=== PATIENT | male | born 1980 | race African-American/Black ===

== ENCOUNTER 2021-05-29 00:21 | Inpatient (IN) ==
[2021-05-29] MEDS ORDERED: ONDANSETRON 4 MG/2 ML VIAL IV STA ×2 (01:31→05:12)
[2021-05-29] MEDS ORDERED: SODIUM CHLORIDE 0.9% 1,000 ML IV STA (01:31)
[2021-05-29] MEDS ORDERED: PANTOPRAZOLE 40 MG VIAL IV STA (01:31)
[2021-05-29] MEDS ORDERED: HYDROmorphone 2 MG/1 ML VIAL IV STA ×2 (01:31→05:12)
[2021-05-29 02:51] LABS: Basophils % 0.3 % (0.0-0.8); Eosinophils # 0.1 10*3/uL (0.0-0.87); Eosinophils % 0.8 % (0.00-10.9); Hematocrit 42.4 VOL% (42.0-52.0); Hemoglobin 13.6 GM/DL (14.0-18.0); Immature Granulocytes % 1.6 %; Immature Granulocytes Absolute 0.24 #; Lymphocytes # 1.1 10*3/uL (1.4-4.0); Lymphocytes % 7.2 % (21.2-54.2); Mean Corpuscular HGB Conc 32.1 GM/DL (32-36); Mean Corpuscular Volume 82.3 FL (87-102); Mean Platelet Volume 9.9 FL (9.6-12.0); Monocytes % 7.7 % (1.7-12.7); Neutrophils % 82.4 % (38.7-73.9); Platelet Count 607 T/CUMM (130-400); Red Blood Count 5.15 MC/CUMM (3.8-5.5); Red Cell Distribution Width 18.6 % (9.3-17.3); White Blood Count 14.6 T/CUMM (4-12)
[2021-05-29 02:57] LABS: Bilirubin,Urine Negative (Negative); Blood, Urine Negative (Negative); Glucose,Urine (UA) Negative (Negative); Ketones,Urine Negative (Negative); Mucus,Urine Occasional /LPF (Occasional); Nitrite,Urine Negative (Negative); Protein,Urine Negative; Urine Appearance Slightly Hazy (Clear); Urine Color Yellow (Yellow); Urine Specific Gravity 1.008 (1.001-1.035); Urine Urobilinogen < 2.0 EU/DL (0.2-1.0)
[2021-05-29 03:32] LABS: Alanine Aminotransferase 95 U/L (16-61); Albumin 2.2 G/DL (3.4-5.0); Alkaline Phosphatase 1200 U/L (45-117); Amylase 368 U/L (25-115); Aspartate Amino Transferase 74 U/L (0-37); Blood Urea Nitrogen 17 MG/DL (7-18); Calcium 12.6 MG/DL (8.5-10.1); Carbon Dioxide 30 MMOL/L (21-32); Estimated Glom Filtration Rate 84 ML/MIN; Glucose 154 MG/DL (74-106); Osmolality,Calculated 272.2 MOS/KG (273-304); Potassium 3.9 MMOL/L (3.5-5.1); Sodium 134 MMOL/L (136-145); Total Protein 8.8 G/DL (6.4-8.2)
[2021-05-29] MEDS ORDERED: PIPERACILLIN/TAZOBACTAM 3,375 MG in SODIUM CHLORIDE 0.9% 100 ML IV STA (03:36)
[2021-05-29] MEDS ORDERED: GLUCAGON 1 MG VIAL IM PRN (06:14)
[2021-05-29] MEDS ORDERED: DEXTROSE 50% 25 GM/50 ML VIAL IV PRN (06:14)
[2021-05-29] MEDS: SODIUM CHLORIDE 0.9% 1,000 ML IV SCH ×3 (07:03→20:41)
[2021-05-29 07:37] LABS: Risk Ratio 25.63; VLDL Cholesterol 34.2 MG/DL
[2021-05-29] MEDS: PANTOPRAZOLE 40 MG VIAL IV SCH (09:40)
[2021-05-29] MEDS: PIPERACILLIN/TAZOBACTAM 3,375 MG in SODIUM CHLORIDE 0.9% 100 ML IV SCH ×2 (10:05→18:46)
[2021-05-29] MEDS: HYDROmorphone 2 MG/1 ML VIAL IV PRN ×2 (12:28→18:49)
[2021-05-29] MEDS: ONDANSETRON 4 MG/2 ML VIAL IV PRN (18:49)
[2021-05-30] MEDS: PIPERACILLIN/TAZOBACTAM 3,375 MG in SODIUM CHLORIDE 0.9% 100 ML IV SCH ×3 (02:24→17:13)
[2021-05-30] MEDS: SODIUM CHLORIDE 0.9% 1,000 ML IV SCH ×3 (02:24→16:18)
[2021-05-30] MEDS: ONDANSETRON 4 MG/2 ML VIAL IV PRN ×2 (04:37→17:11)
[2021-05-30] MEDS: HYDROmorphone 2 MG/1 ML VIAL IV PRN (04:38)
[2021-05-30 06:52] LABS: Albumin 1.6 G/DL (3.4-5.0); Bilirubin,Total 1.8 MG/DL (0.20-1.00); Calcium 11.7 MG/DL (8.5-10.1); Osmolality,Calculated 277.7 MOS/KG (273-304); Total Protein 7.4 G/DL (6.4-8.2)
[2021-05-30 06:57] LABS: Basophils % 0.2 % (0.0-0.8); Eosinophils # 0.1 10*3/uL (0.0-0.87); Eosinophils % 0.4 % (0.00-10.9); Hematocrit 38.4 VOL% (42.0-52.0); Hemoglobin 12.6 GM/DL (14.0-18.0); Immature Granulocytes % 0.8 %; Immature Granulocytes Absolute 0.12 #; Lymphocytes % 6.2 % (21.2-54.2); Mean Corpuscular HGB Conc 32.8 GM/DL (32-36); Mean Corpuscular Volume 83.5 FL (87-102); Mean Platelet Volume 11.2 FL (9.6-12.0); Monocytes % 9.4 % (1.7-12.7); Red Cell Distribution Width 19.2 % (9.3-17.3)
[2021-05-30 07:32] LABS: Platelet Count 391 T/CUMM (130-400)
[2021-05-30] MEDS: PANTOPRAZOLE 40 MG VIAL IV SCH (09:59)
[2021-05-30] MEDS ORDERED: HYDROmorphone 2 MG/1 ML VIAL IV PRN (12:31)
[2021-05-31] MEDS: PIPERACILLIN/TAZOBACTAM 3,375 MG in SODIUM CHLORIDE 0.9% 100 ML IV SCH ×3 (02:04→17:55)
[2021-05-31 06:41] LABS: Basophils % 0.2 % (0.0-0.8); Eosinophils # 0.4 10*3/uL (0.0-0.87); Hematocrit 34.9 VOL% (42.0-52.0); Hemoglobin 11.4 GM/DL (14.0-18.0); Immature Granulocytes Absolute 0.13 #; Lymphocytes # 1.1 10*3/uL (1.4-4.0); Lymphocytes % 8.8 % (21.2-54.2); Mean Corpuscular HGB Conc 32.7 GM/DL (32-36); Mean Corpuscular Volume 83.1 FL (87-102); Mean Platelet Volume 10.8 FL (9.6-12.0); Monocytes % 8.8 % (1.7-12.7); Neutrophils % 78.2 % (38.7-73.9); Platelet Count 427 T/CUMM (130-400); Red Cell Distribution Width 18.7 % (9.3-17.3); White Blood Count 12.9 T/CUMM (4-12)
[2021-05-31 07:01] LABS: Albumin 1.5 G/DL (3.4-5.0); Bilirubin,Total 1.3 MG/DL (0.20-1.00); Calcium 10.9 MG/DL (8.5-10.1); Osmolality,Calculated 268.4 MOS/KG (273-304); Potassium 3.7 MMOL/L (3.5-5.1); Total Protein 7.4 G/DL (6.4-8.2)
[2021-05-31] MEDS: SODIUM CHLORIDE 0.9% 1,000 ML IV SCH ×3 (08:34→17:57)
[2021-05-31] MEDS: PANTOPRAZOLE 40 MG VIAL IV SCH (09:01)
[2021-05-31] MEDS: HYDROmorphone 2 MG/1 ML VIAL IV PRN (09:05)
[2021-05-31] MEDS: ONDANSETRON 4 MG/2 ML VIAL IV PRN (09:08)
[2021-06-01] MEDS: PIPERACILLIN/TAZOBACTAM 3,375 MG in SODIUM CHLORIDE 0.9% 100 ML IV SCH ×3 (01:35→20:59)
[2021-06-01] MEDS: SODIUM CHLORIDE 0.9% 1,000 ML IV SCH ×3 (04:04→13:27)
[2021-06-01] MEDS ORDERED: SEVOFLURANE 1 UNIT/15 MINUTE INH ONE ×5 (05:16→11:11)
[2021-06-01] MEDS ORDERED: ROCURONIUM 50 MG/5 ML VIAL IV ONE (05:16)
[2021-06-01] MEDS ORDERED: MIDAZOLAM 2 MG/2 ML VIAL ONE (05:16)
[2021-06-01] MEDS ORDERED: propofoL 200 MG/20 ML VIAL IV ONE (05:16)
[2021-06-01] MEDS ORDERED: fentaNYL 100 MCG/2 ML VIAL ONE (05:16)
[2021-06-01] MEDS ORDERED: LIDOCAINE 2% 5 ML VIAL ONE (05:16)
[2021-06-01] MEDS ORDERED: BUPIVACAINE MPF 0.25% 30 ML VIAL ONE (09:31)
[2021-06-01] MEDS ORDERED: LIDOCAINE 1%/EPI INJ 20 ML VIAL ONE (09:31)
[2021-06-01] MEDS ORDERED: PHENYLEPHRINE 1 MG/10 ML SYRINGE IV ONE (09:56)
[2021-06-01] MEDS ORDERED: TISSUE ADHESIVE 1 EACH APPLICATOR TOP ONE (09:56)
[2021-06-01] MEDS ORDERED: ONDANSETRON 4 MG/2 ML VIAL ONE (09:57)
[2021-06-01] MEDS ORDERED: GLYCOPYRROLATE 0.4 MG/2 ML VIAL ONE (09:59)
[2021-06-01] MEDS ORDERED: NEOSTIGMINE 10 MG/10 ML VIAL ONE (09:59)
[2021-06-01] MEDS ORDERED: SODIUM CHLORIDE 0.9% 1,000 ML IV ONE (10:18)
[2021-06-01] MEDS ORDERED: ONDANSETRON 4 MG/2 ML VIAL IV PRN (11:34)
[2021-06-01] MEDS: HYDROmorphone 2 MG/1 ML VIAL IV PRN ×3 (11:36→18:39)
[2021-06-01] MEDS: PANTOPRAZOLE 40 MG VIAL IV SCH (12:36)
[2021-06-01 13:18] LABS: Albumin 1.5 G/DL (3.4-5.0); Bilirubin,Total 1.4 MG/DL (0.20-1.00); Calcium 9.9 MG/DL (8.5-10.1); Osmolality,Calculated 267.2 MOS/KG (273-304); Potassium 3.3 MMOL/L (3.5-5.1); Total Protein 7.2 G/DL (6.4-8.2)
[2021-06-01 13:24] LABS: Basophils % 0.3 % (0.0-0.8); Eosinophils # 0.3 10*3/uL (0.0-0.87); Eosinophils % 2.7 % (0.00-10.9); Hematocrit 35.9 VOL% (42.0-52.0); Hemoglobin 11.1 GM/DL (14.0-18.0); Immature Granulocytes % 1.2 %; Immature Granulocytes Absolute 0.12 #; Lymphocytes % 10.3 % (21.2-54.2); Mean Corpuscular HGB Conc 30.9 GM/DL (32-36); Mean Corpuscular Volume 88.2 FL (87-102); Mean Platelet Volume 10.1 FL (9.6-12.0); Monocytes % 10.7 % (1.7-12.7); Neutrophils % 74.8 % (38.7-73.9); Platelet Count 429 T/CUMM (130-400); Red Blood Count 4.07 MC/CUMM (3.8-5.5); Red Cell Distribution Width 18.9 % (9.3-17.3); White Blood Count 10.1 T/CUMM (4-12)
[2021-06-02] MEDS: PIPERACILLIN/TAZOBACTAM 3,375 MG in SODIUM CHLORIDE 0.9% 100 ML IV SCH ×2 (04:26→12:05)
[2021-06-02 06:49] LABS: Basophils % 0.3 % (0.0-0.8); Eosinophils # 0.4 10*3/uL (0.0-0.87); Eosinophils % 4.2 % (0.00-10.9); Hematocrit 32.6 VOL% (42.0-52.0); Hemoglobin 10.6 GM/DL (14.0-18.0); Immature Granulocytes % 0.9 %; Immature Granulocytes Absolute 0.08 #; Lymphocytes # 0.8 10*3/uL (1.4-4.0); Lymphocytes % 9.1 % (21.2-54.2); Mean Corpuscular HGB Conc 32.5 GM/DL (32-36); Mean Corpuscular Volume 83.8 FL (87-102); Mean Platelet Volume 10.3 FL (9.6-12.0); Monocytes % 12.7 % (1.7-12.7); Neutrophils % 72.8 % (38.7-73.9); Platelet Count 431 T/CUMM (130-400); Red Blood Count 3.89 MC/CUMM (3.8-5.5); Red Cell Distribution Width 18.6 % (9.3-17.3); White Blood Count 9.2 T/CUMM (4-12)
[2021-06-02 07:25] LABS: Albumin 1.4 G/DL (3.4-5.0); Bilirubin,Total 1.4 MG/DL (0.20-1.00); Calcium 9.9 MG/DL (8.5-10.1); Osmolality,Calculated 268.2 MOS/KG (273-304); Potassium 3.5 MMOL/L (3.5-5.1); Total Protein 6.9 G/DL (6.4-8.2)
[2021-06-02] MEDS: PANTOPRAZOLE 40 MG VIAL IV SCH (08:49)
[2021-06-02 12:32] VITALS: BP 120/76
== END 2021-06-02 13:00 | disposition home or self-care (01) | DRG 263 ==
LOC: SUATTDRO → N.ED 00:21 → N.EDINP 06:14 → N.2W 15:25
PROVIDERS: ADMIT Internal Medicine; ATTEND Internal Medicine
PROC: LAPCHOL (2021-06-01 09:24)

== ENCOUNTER 2021-11-21 09:09 | Inpatient (IN) ==
[2021-11-21] MEDS ORDERED: ONDANSETRON 4 MG/2 ML VIAL IV STA (09:43)
[2021-11-21] MEDS ORDERED: PANTOPRAZOLE 40 MG VIAL IV STA (09:43)
[2021-11-21] MEDS ORDERED: SODIUM CHLORIDE 0.9% 1,000 ML IV STA ×2 (09:43→10:47)
[2021-11-21] MEDS ORDERED: HYDROmorphone 1 MG/1 ML SYRINGE IV STA (09:44)
[2021-11-21 10:17] LABS: Basophils % 0.3 % (0.0-0.8); Eosinophils # 0.3 10*3/uL (0.0-0.87); Eosinophils % 4.1 % (0.00-10.9); Hematocrit 43.5 VOL% (42.0-52.0); Hemoglobin 13.8 GM/DL (14.0-18.0); Immature Granulocytes % 0.4 %; Immature Granulocytes Absolute 0.03 #; Lymphocytes % 12.5 % (21.2-54.2); Mean Corpuscular HGB Conc 31.7 GM/DL (32-36); Mean Corpuscular Volume 84.5 FL (87-102); Mean Platelet Volume 11.1 FL (9.6-12.0); Monocytes # 0.8 10*3/uL (0.11-0.8); Monocytes % 9.8 % (1.7-12.7); Neutrophils % 72.9 % (38.7-73.9); Platelet Count 380 T/CUMM (130-400); Red Blood Count 5.15 MC/CUMM (3.8-5.5); Red Cell Distribution Width 14.8 % (9.3-17.3); White Blood Count 7.9 T/CUMM (4-12)
[2021-11-21 10:42] LABS: Bilirubin,Total 1.3 MG/DL (0.20-1.00); Osmolality,Calculated 276.1 MOS/KG (273-304); Potassium 3.6 MMOL/L (3.5-5.1); Total Protein 10.8 G/DL (6.4-8.2)
[2021-11-21 10:45] LABS: Calcium 15.7 MG/DL (8.5-10.1)
[2021-11-21] MEDS ORDERED: DEXTROSE 10% 25 GM/250 ML BAG IV PRN (11:01)
[2021-11-21] MEDS ORDERED: GLUCAGON 1 MG VIAL IM PRN (11:01)
[2021-11-21] MEDS ORDERED: LACTULOSE 20 GM/30 ML UDCUP PO PRN (11:01)
[2021-11-21 11:24] LABS: Risk Ratio 6.93; VLDL Cholesterol 26.4 MG/DL
[2021-11-21] MEDS: LACTATED RINGERS 1,000 ML IV SCH ×2 (11:30→19:23)
[2021-11-21 11:55] LABS: Osmolality,Calculated 279.8 MOS/KG (273-304); Potassium 3.8 MMOL/L (3.5-5.1)
[2021-11-21 12:04] LABS: Calcium 14.2 MG/DL (8.5-10.1)
[2021-11-21] MEDS: INSULIN LISPRO 100 UNIT/ML SUBCUT SCH ×2 (12:19→18:54)
[2021-11-21] MEDS: HYDROmorphone 1 MG/1 ML SYRINGE IV PRN ×4 (12:40→22:56)
[2021-11-21] MEDS: PROMETHAZINE 25 MG/1 ML VIAL IM PRN ×2 (12:41→19:21)
[2021-11-21] MEDS: ONDANSETRON 4 MG/2 ML VIAL IV PRN ×2 (14:13→18:15)
[2021-11-21 16:12] LABS: INR 1.1; Partial Thromboplastin Time 30.2 SECS (23.8-32.1)
[2021-11-21 18:51] LABS: Calcium Oxalate Crystals,Urine Occasional /HPF (Few); Glucose,Urine (UA) Negative (Negative); Ketones,Urine Negative (Negative); Protein,Urine Trace mg/dL (Negative); RBC,Urine 4 /HPF (0-4); Urine Appearance Clear (Clear); Urine Color Yellow (Yellow); Urine Specific Gravity 1.015 (1.001-1.035)
[2021-11-21 18:52] LABS: Bilirubin,Urine Negative (Negative); Blood, Urine Moderate mg/dL (Negative); Nitrite,Urine Negative (Negative); Urine Urobilinogen 0.2 eU/dL (<2.0)
[2021-11-21 20:21] LABS: Hepatitis B Core IgM Quant 0.11 Index; Hepatitis B Surface Ag Quant < 0.10 Index; Hepatitis B Surface Ag Result Non-Reactive (NonReactive); Hepatitis C Virus Ab Quant 0.13 Index; Hepatitis C Virus Ab Result Non-Reactive (NonReactive)
[2021-11-21] MEDS: DOCUSATE SODIUM 100 MG CAPSULE PO SCH (20:39)
[2021-11-21] MEDS: PANTOPRAZOLE 40 MG VIAL IV SCH (20:39)
[2021-11-22] MEDS: LACTATED RINGERS 1,000 ML IV SCH ×5 (00:22→16:37)
[2021-11-22] MEDS: INSULIN LISPRO 100 UNIT/ML SUBCUT SCH ×4 (00:58→17:16)
[2021-11-22] MEDS: HYDROmorphone 1 MG/1 ML SYRINGE IV PRN ×5 (02:07→21:26)
[2021-11-22] MEDS: ONDANSETRON 4 MG/2 ML VIAL IV PRN ×4 (02:08→21:27)
[2021-11-22 06:47] LABS: Basophils % 0.2 % (0.0-0.8); Eosinophils # 0.2 10*3/uL (0.0-0.87); Eosinophils % 1.9 % (0.00-10.9); Hematocrit 39.6 VOL% (42.0-52.0); Hemoglobin 12.3 GM/DL (14.0-18.0); Immature Granulocytes % 0.3 %; Immature Granulocytes Absolute 0.03 #; Lymphocytes # 0.8 10*3/uL (1.4-4.0); Lymphocytes % 8.6 % (21.2-54.2); Mean Corpuscular HGB Conc 31.1 GM/DL (32-36); Mean Corpuscular Volume 86.3 FL (87-102); Mean Platelet Volume 11.3 FL (9.6-12.0); Monocytes # 1.2 10*3/uL (0.11-0.8); Monocytes % 12.9 % (1.7-12.7); Neutrophils % 76.1 % (38.7-73.9); Platelet Count 295 T/CUMM (130-400); Red Blood Count 4.59 MC/CUMM (3.8-5.5); White Blood Count 9.2 T/CUMM (4-12)
[2021-11-22 07:10] LABS: Albumin 2.3 G/DL (3.4-5.0); Bilirubin,Total 1.1 MG/DL (0.20-1.00); Calcium 13.7 MG/DL (8.5-10.1); Osmolality,Calculated 279.8 MOS/KG (273-304); Potassium 3.9 MMOL/L (3.5-5.1); Total Protein 8.3 G/DL (6.4-8.2)
[2021-11-22 07:11] LABS: Phosphorous 4.9 MG/DL (2.5-4.9)
[2021-11-22] MEDS: DOCUSATE SODIUM 100 MG CAPSULE PO SCH ×2 (09:26→21:28)
[2021-11-22] MEDS: PANTOPRAZOLE 40 MG VIAL IV SCH ×2 (09:26→21:28)
[2021-11-23] MEDS: INSULIN LISPRO 100 UNIT/ML SUBCUT SCH ×4 (00:58→17:47)
[2021-11-23] MEDS: LACTATED RINGERS 1,000 ML IV SCH ×5 (05:53→18:12)
[2021-11-23 06:12] LABS: Basophils % 0.1 % (0.0-0.8); Eosinophils # 0.5 10*3/uL (0.0-0.87); Eosinophils % 7.2 % (0.00-10.9); Hematocrit 32.2 VOL% (42.0-52.0); Hemoglobin 10.3 GM/DL (14.0-18.0); Immature Granulocytes % 0.4 %; Immature Granulocytes Absolute 0.03 #; Lymphocytes # 1.1 10*3/uL (1.4-4.0); Lymphocytes % 15.8 % (21.2-54.2); Mean Corpuscular Volume 84.7 FL (87-102); Mean Platelet Volume 11.2 FL (9.6-12.0); Monocytes # 0.9 10*3/uL (0.11-0.8); Monocytes % 13.1 % (1.7-12.7); Neutrophils % 63.4 % (38.7-73.9); Platelet Count 282 T/CUMM (130-400); Red Cell Distribution Width 14.8 % (9.3-17.3); White Blood Count 6.7 T/CUMM (4-12)
[2021-11-23 06:40] LABS: Albumin 2.1 G/DL (3.4-5.0); Bilirubin,Total 0.9 MG/DL (0.20-1.00); Calcium 12.5 MG/DL (8.5-10.1); Osmolality,Calculated 279.7 MOS/KG (273-304); Potassium 3.5 MMOL/L (3.5-5.1); Total Protein 7.5 G/DL (6.4-8.2)
[2021-11-23 06:47] LABS: Albumin 2.1 G/DL (3.4-5.0); Bilirubin,Direct 0.52 MG/DL (0.0-0.20); Bilirubin,Indirect 0.4 MG/DL (0.0-1.0); Bilirubin,Total 0.9 MG/DL (0.20-1.00); Potassium 3.5 MMOL/L (3.5-5.1); Total Protein 7.5 G/DL (6.4-8.2)
[2021-11-23] MEDS: PANTOPRAZOLE 40 MG VIAL IV SCH (08:46)
[2021-11-23] MEDS: DOCUSATE SODIUM 100 MG CAPSULE PO SCH ×2 (08:46→21:14)
[2021-11-23] MEDS: predniSONE 20 MG TABLET PO SCH (14:16)
[2021-11-23] MEDS: FUROSEMIDE 20 MG/2 ML VIAL IV SCH (16:35)
[2021-11-24] MEDS: INSULIN LISPRO 100 UNIT/ML SUBCUT SCH (00:16)
[2021-11-24] MEDS: LACTATED RINGERS 1,000 ML IV SCH ×2 (04:39→04:42)
[2021-11-24 05:51] LABS: Basophils % 0.1 % (0.0-0.8); Eosinophils # 0.2 10*3/uL (0.0-0.87); Eosinophils % 2.8 % (0.00-10.9); Hematocrit 30.8 VOL% (42.0-52.0); Hemoglobin 9.9 GM/DL (14.0-18.0); Immature Granulocytes % 0.3 %; Immature Granulocytes Absolute 0.02 #; Lymphocytes # 1.1 10*3/uL (1.4-4.0); Lymphocytes % 15.6 % (21.2-54.2); Mean Corpuscular HGB Conc 32.1 GM/DL (32-36); Mean Corpuscular Volume 83.2 FL (87-102); Mean Platelet Volume 11.3 FL (9.6-12.0); Monocytes # 0.8 10*3/uL (0.11-0.8); Monocytes % 11.9 % (1.7-12.7); Neutrophils % 69.3 % (38.7-73.9); Platelet Count 275 T/CUMM (130-400); Red Cell Distribution Width 14.3 % (9.3-17.3); White Blood Count 6.7 T/CUMM (4-12)
[2021-11-24 06:00] LABS: Albumin 2.1 G/DL (3.4-5.0); Bilirubin,Total 0.6 MG/DL (0.20-1.00); Calcium 12.7 MG/DL (8.5-10.1); Osmolality,Calculated 278.8 MOS/KG (273-304); Potassium 3.4 MMOL/L (3.5-5.1)
[2021-11-24] MEDS ORDERED: PANTOPRAZOLE 40 MG TABLET PO SCH (09:00)
[2021-11-24] MEDS: predniSONE 20 MG TABLET PO SCH (09:01)
[2021-11-24] MEDS: FUROSEMIDE 20 MG/2 ML VIAL IV SCH (09:01)
[2021-11-24] MEDS: DOCUSATE SODIUM 100 MG CAPSULE PO SCH (09:01)
[2021-11-24] MEDS ORDERED: POTASSIUM CHLORIDE 20 MEQ TABLET PO ONE (10:41)
[2021-11-24 12:00] VITALS: BP 159/100
== END 2021-11-24 14:24 | disposition home or self-care (01) | DRG 439 ==
LOC: N.ED 09:09 → SUATTDRO 11:01 → N.EDINP 11:01 → N.3E 14:09
PROVIDERS: ADMIT Internal Medicine; ATTEND Internal Medicine